=== PATIENT | male | born 2000 | race African-American/Black ===

== ENCOUNTER 2021-05-17 17:10 | Emergency (ER) | payer OTHER ==
[~2021-05-17] VITALS: Ht 162.6 cm; Wt 55.9 kg
[2021-05-17] MEDS ORDERED: GI COCKTAIL 50ML BTL(HYOSCYAMINE/MAALOX/LIDOCAINE VISCOUS)(1:3:1) PO ONE (19:10)
[2021-05-17] MEDS ORDERED: KETOROLAC 60MG 2ML VIAL IM ONE (19:10)
[2021-05-17 20:05] VITALS: BP 115/76
[2021-05-17] MEDS ORDERED: OMEP-173 PO (20:07)
== END 2021-05-17 20:18 | disposition home or self-care (01) ==
LOC: M ED 17:10
DX: R50.9 Fever, unspecified (principal); R51.9 Headache, unspecified; J02.9 Acute pharyngitis, unspecified; M79.10 Myalgia, unspecified site
CPT/HCPCS: 87804; 96372; 99283; J1885; U0003

== ENCOUNTER 2021-06-13 21:04 | Emergency (ER) | payer OTHER ==
[~2021-06-13] VITALS: Ht 162.6 cm; Wt 56.3 kg
[~2021-06-13 21:04] MED LIST: OMEP-173 PO
[2021-06-13 21:15] VITALS: BP 122/76
[2021-06-13] MEDS ORDERED: NS 1,000 ML IV ONE (22:05)
[2021-06-13] MEDS ORDERED: ONDANSETRON 4MG/2ML VIAL IV ONE (22:05)
[2021-06-13] MEDS ORDERED: KETOROLAC 30 MG/ML 1ML VIAL IV ONE (22:05)
[2021-06-13 23:07] LABS: ALBUMIN 4.5 GM/DL (3.2-5.2); ALT/SGPT 68 U/L (12-78); BILIRUBIN,TOTAL 0.6 MG/DL (0.2-1.0); BLOOD UREA NITROGEN 13 MG/DL (7-18); CALCIUM LEVEL 9.7 MG/DL (8.5-10.1); CARBON DIOXIDE LEVEL 19 MEQ/L (21-32); CHLORIDE LEVEL 105 MEQ/L (98-107); CREATININE FOR GFR 1.01 MG/DL (0.70-1.30); GLOMERULAR FILTRATION RATE > 60.0 (>60); GLUCOSE, FASTING 75 MG/DL (70-100); SODIUM LEVEL 139 MEQ/L (136-145); TOTAL PROTEIN 7.9 GM/DL (6.4-8.2)
[2021-06-14] MEDS ORDERED: ONDA4TAB6 PO (00:28)
[2021-06-14] MEDS ORDERED: ONDANSETRON 4MG ORAL DISINTEGRATING TAB PO ONE (00:30)
== END 2021-06-14 00:44 | disposition home or self-care (01) ==
LOC: M ED 21:04
DX: R11.2 Nausea with vomiting, unspecified (principal); K21.9 Gastro-esophageal reflux disease without esophagitis; Z79.899 Other long term (current) drug therapy
CPT/HCPCS: 80053; 96361; 96374; 96375; 99284; J1885; J2405

== ENCOUNTER 2022-05-30 01:24 | Emergency (ER) | payer OTHER ==
[~2022-05-30] VITALS: Ht 165.1 cm; Wt 51.7 kg
[~2022-05-30 01:24] MED LIST changes: +ONDA4TAB6 PO
[2022-05-30 01:27] VITALS: BP 140/95
== END 2022-05-30 02:54 | disposition left against medical advice (07) ==
LOC: M ED 01:24 → EDBD 01:24 → M ED 02:54
DX: F41.9 Anxiety disorder, unspecified (principal); Z53.21 Procedure and treatment not carried out due to patient leaving prior to being seen by health care provider

== ENCOUNTER 2022-09-10 09:19 | Emergency (ER) | payer OTHER ==
[~2022-09-10] VITALS: Ht 152.4 cm; Wt 57.7 kg
[2022-09-10] MEDS ORDERED: ONDANSETRON 4MG ORAL DISINTEGRATING TAB PO ONE (10:00)
[2022-09-10] MEDS ORDERED: ACETAMINOPHEN 325 MG TAB PO ONE (10:00)
[2022-09-10] MEDS ORDERED: IBUP80TA PO (11:06)
[2022-09-10] MEDS ORDERED: ONDA4TAB6 PO (11:06)
[2022-09-10 11:12] VITALS: BP 118/68; TEMP 97.5; O2SAT 98
== END 2022-09-10 11:21 | disposition home or self-care (01) ==
LOC: M ED 09:19
DX: R51.9 Headache, unspecified (principal)

== ENCOUNTER 2022-10-08 09:50 | Emergency (ER) | payer OTHER ==
[~2022-10-08] VITALS: Ht 165.1 cm; Wt 56.6 kg
[~2022-10-08 09:50] MED LIST changes: +IBUP80TA PO
[2022-10-08] MEDS ORDERED: ONDANSETRON 4MG ORAL DISINTEGRATING TAB PO ONE (11:25)
[2022-10-08 12:16] LABS: RSV AMPLIFICATION NEGATIVE (NEGATIVE)
[2022-10-08] MEDS ORDERED: ACETAMINOPHEN TAB 650MG DOSE (2X325MG) PO ONE (13:05)
[2022-10-08] MEDS ORDERED: ONDA4TAB6 PO (13:32)
[2022-10-08 13:41] VITALS: BP 138/90; TEMP 99.3; O2SAT 100
== END 2022-10-08 13:46 | disposition home or self-care (01) ==
LOC: M ED 09:50
DX: R51.9 Headache, unspecified (principal); R11.10 Vomiting, unspecified

== ENCOUNTER 2024-10-16 10:18 | Emergency (ER) | payer MEDICAID, OTHER, SELFPAY ==
[~2024-10-16] VITALS: Ht 162.6 cm; Wt 53.0 kg
[~2024-10-16 10:18] MED LIST changes: +ONDA-282 PO; -ONDA4TAB6 PO
[2024-10-16 10:31] VITALS: BP 177/86; TEMP 97.6; O2SAT 100
[2024-10-16] MEDS ORDERED: PERM60CR8 TOP (12:11)
== END 2024-10-16 12:21 | disposition home or self-care (01) ==
LOC: M ED 10:18
DX: B86 Scabies (principal); F12.10 Cannabis abuse, uncomplicated; F10.10 Alcohol abuse, uncomplicated; Z79.899 Other long term (current) drug therapy